=== PATIENT | female | born 1995 | race Caucasian/White ===

== ENCOUNTER 2016-04-09 14:21 | Emergency (ER) | payer OTHER ==
[~2016-04-09] VITALS: Ht 162.6 cm; Wt 108.9 kg
[2016-04-09 14:24] VITALS: BP 109/61
--- NOTE | 2016-04-09 14:24 | NUR ---
Patient placed in bed 5 by EMS.
--- NOTE | 2016-04-09 14:25 | NUR ---
20/F CHULA FROM HOME FOR EVALUATION OF ANXIETY. PT STATES SHE WOKE UP THIS MORNING AND WAS HYPERVENTILATING. PATIENT ARRIVED TO ED CALM AND RELAXED. PT STATES HER HANDS WERE NUMB AND C/O DIZZINESS. NO SIGNS OF DISTRESS. PATIENT IS AOX4, AMBULATORY WITH STEADY GAIT. VSS.
--- NOTE | 2016-04-09 14:35 | NUR ---
Mother at bedside.
--- NOTE | 2016-04-09 15:13 | NUR ---
Patient being evaluated by physician at bedside.
[2016-04-09 15:44] VITALS: BP 109/61
--- NOTE | 2016-04-09 15:45 | NUR ---
Chart checked and completed. The patient's care was reviewed and supervised by Horace Moody RN.
== END 2016-04-09 15:45 | disposition home or self-care (01) ==
LOC: MED 14:21
DX: F41.1 Generalized anxiety disorder (principal); R25.2 Cramp and spasm